=== PATIENT | female | born 1975 | race Two or more races ===

== ENCOUNTER 2020-07-22 10:53 | Emergency (ER) | payer OTHER ==
[2020-07-22 11:50] LABS: BASOPHILS # (AUTO) 0.1 10^3/uL (0.0-0.1); BASOPHILS % (AUTO) 0.8 %; EOSINOPHILS # (AUTO) 0.2 10^3/uL (0.0-0.7); EOSINOPHILS % (AUTO) 3.1 %; HCT - HEMATOCRIT 40.7 % (37.0-47.0); HGB - HEMOGLOBIN 12.8 g/dL (12.0-16.0); LYMPHOCYTES # (AUTO) 1.3 10^3/uL (1.5-3.5); LYMPHOCYTES % (AUTO) 20.2 %; MEAN CORPUSCULAR HEMOGLOBIN 21.7 pg (27.0-31.0); MEAN CORPUSCULAR HGB CONC 31.4 g/dL (32.0-36.0); MEAN PLATELET VOLUME 9.2 fL (7.9-10.8); MONOCYTES # (AUTO) 0.6 10^3/uL (0.0-1.0); MONOCYTES % (AUTO) 8.7 %; NEUTROPHILS # (AUTO) 4.4 10^3/uL (1.5-6.6); PLT - PLATELET COUNT 294 10^3/uL (130-450); RED CELL DISTRIBUTION WIDTH 13.7 % (12.0-15.0); WHITE BLOOD COUNT 6.5 x10^3/uL (4.8-10.8)
[2020-07-22 11:53] LABS: SLIDE REVIEW? Indicated
[2020-07-22 12:03] LABS: ALBUMIN 4.5 g/dL (3.2-5.5); ALBUMIN/GLOBULIN RATIO 1.6 (1.0-2.2); BILIRUBIN,TOTAL 0.9 mg/dL (0.2-1.0); CALCIUM 9.8 mg/dL (8.5-10.3); CREATININE 0.7 mg/dL (0.4-1.0); POTASSIUM 3.9 mmol/L (3.5-5.0); TOTAL PROTEIN 7.3 g/dL (6.7-8.2)
[2020-07-22 12:11] LABS: PLATELET ESTIMATE, MANUAL NORMAL (130-450,000) (NORMAL); PLATELET MORPHOLOGY NORMAL APPEARANCE (NORMAL)
[2020-07-22 12:12] LABS: RBC MORPHOLOGY (MULTIPLE) 3+ MICROCYTOSIS (NORMAL)
[2020-07-22 12:48] LABS: BILIRUBIN,URINE NEGATIVE (NEGATIVE); CLARITY,URINE CLEAR (CLEAR); GLUCOSE, URINE (UA) NEGATIVE (NEGATIVE); KETONES,URINE (UA) 15 mg/dL (NEGATIVE); LEUKOCYTE ESTERASE, URINE NEGATIVE (NEGATIVE); NITRITE,URINE NEGATIVE (NEGATIVE); OCCULT BLOOD,URINE TRACE-INTA (NEGATIVE); PROTEIN,URINE NEGATIVE (NEGATIVE); UROBILINOGEN,URINE 0.2 (NORMAL) E.U./dL (NORMAL)
--- NOTE | 2020-07-22 14:03 | ED Physician Documentation ---
History of Present Illness - Stated complaint Stated Complaint: WEAKNESS - Chief complaint Chief Complaint: General - History obtained from History obtained from: Patient - Additonal information Additional information: 45yF with pmh anxiety on venlafaxine p/w full body tingling, sensation of weakness, and concerns that she has rhabdomyolysis (which she has had in the past). Patient states she is very anxious and stopped her venlafaxine abruptly last week without consulting a doctor. Since that time she has been feeling tearful and anxious. denies SI/HI/AVH. Her primary doctor prescribed her prop ranolol as an alternative and has her set up with outpatient mental health intake this upcoming week. Review of Systems Ten Systems: 10 systems reviewed and negative Constitutional: reports: Myalgias, Fatigue. denies: Fever, Chills Cardiac: denies: Chest pain / pressure Respiratory: denies: Dyspnea GI: denies: Abdominal Pain Neurologic: reports: Generalized weakness. denies: Syncope, Headache Psychiatric: reports: Depressed, Anxiety. 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 - Present Medications Home Medications: Ambulatory Orders Medication Instructions Recorded Confirmed Control 1 applic SUBQ TITR 09/14/14 07/22/20 Propranolol [Inderal] 1 tab ORAL DAILY PRN 10/22/15 07/22/20 Venlafaxine [Effexor] 1 tab ORAL DAILY 10/22/15 07/22/20 - Allergies Allergies/Adverse Reactions: Allergies Allergy/AdvReac Type Severity Reaction Status Date / Time No Known Drug Allergies Allergy Verified 07/22/20 11:04 - Social History Does the pt smoke?: No Smoking Status: Never smoker Does the pt drink ETOH?: No Does the pt have substance abuse?: No - Immunizations Immunizations are current?: Yes PD ED PE NORMAL - Vitals Vital signs reviewed: Yes - General General: Alert and oriented X 3, No acute distress, Well developed/nourished - HEENT HEENT: Atraumatic, PERRL, EOMI - Neck Neck: Supple, no meningeal sign - Cardiac Cardiac: RRR - Respiratory Respiratory: No respiratory distress, Clear bilaterally - Abdomen Abdomen: Non tender, Non distended - Derm Derm: Normal color - Extremities Extremities: No deformity - Neuro Neuro: Alert and oriented X 3 - Psych Psych: Other (intermittently tearful affect. mood described as anxious) Results - Vitals Vitals: Vital Signs - 24 hr 07/22/20 07/22/20 10:59 14:08 Temperature 36.4 C L 37.1 C Heart Rate 84 61 Respiratory 16 18 Rate Blood Pressure 116/81 H 121/81 H O2 Saturation 100 100 Oxygen O2 Source Room air - Labs Labs: Laboratory Tests 07/22/20 07/22/20 07/22/20 11:40 11:40 12:33 WBC 6.5 RBC 5.90 H Hgb 12.8 Hct 40.7 MCV 69.0 L MCH 21.7 L MCHC 31.4 L RDW 13.7 Plt Count 294 MPV 9.2 Neut # (Auto) 4.4 Lymph # (Auto) 1.3 L [place] # (Auto) 0.6 Eos # (Auto) 0.2 Baso # (Auto) 0.1 Absolute Nucleated RBC 0.00 Nucleated RBC % 0.0 Manual Slide Review Indicated Platelet Estimate NORMAL (130-450,000) Platelet Morphology NORMAL APPEARANCE RBC Morph Micro Appear 3+ MICROCYTOSIS Sodium 136 Potassium 3.9 Chloride 99 L Carbon Dioxide 28 Anion Gap 9.0 BUN 20 Creatinine 0.7 Estimated GFR (MDRD) 90 Glucose 97 Calcium 9.8 Total Bilirubin 0.9 AST 26 ALT 20 Alkaline Phosphatase 30 L Total Creatine Kinase 130 Total Protein 7.3 Albumin 4.5 Globulin 2.8 Albumin/Globulin Ratio 1.6 Lipase 47 Urine Color YELLOW Urine Clarity CLEAR Urine pH 7.0 Ur Specific [place] 1.010 Urine Protein NEGATIVE Urine Glucose (UA) NEGATIVE Urine Ketones 15 H Urine Occult Blood TRACE-INTA Urine Nitrite NEGATIVE Urine Bilirubin NEGATIVE Urine Urobilinogen 0.2 (NORMAL) Ur Leukocyte Esterase NEGATIVE Ur Microscopic Review NOT INDICATED Urine Culture Comments NOT INDICATED PD MEDICAL DECISION MAKING - ED course ED course: 45yF presented for medical screening exam without abnormalities on bloodwork including ck. she has good outpatient mental health follow up and support system at home. return precautions given. Departure - Departure Disposition: Home, Self Care Clinical Impression: Anxiety Condition: Good Instructions: ED Stress React Comments: You are seen in the emergency department for anxiety and stress reaction. Please follow-up with your primary doctor this week as well as with your mental health provider for evaluation. Return the emergency department if you have thoughts of suicide, of killing anyone else, Or if you are having hallucinations. You're not alone Help is available National Suicide Prevention Lifeline Discharge Date/Time: 07/22/20 14:12
[2020-07-22 14:08] VITALS: BP 121/81
== END 2020-07-22 14:12 | disposition home or self-care (01) ==
LOC: ED 10:53
DX: F41.9 Anxiety disorder, unspecified (principal); F43.9 Reaction to severe stress, unspecified; R20.2 Paresthesia of skin; R53.1 Weakness
CPT/HCPCS: 36415; 80053; 81001; 81003; 82550; 83690; 85025; 87086; 99283

== ENCOUNTER 2020-08-01 22:38 | Emergency (ER) | payer OTHER ==
[2020-08-01 23:40] LABS: MUDS CUTOFF CONCENTRATIONS CUTOFF CONC BELOW:
[2020-08-01 23:43] LABS: BILIRUBIN,URINE NEGATIVE (NEGATIVE); CLARITY,URINE CLEAR (CLEAR); GLUCOSE, URINE (UA) NEGATIVE (NEGATIVE); KETONES,URINE (UA) NEGATIVE (NEGATIVE); LEUKOCYTE ESTERASE, URINE NEGATIVE (NEGATIVE); NITRITE,URINE NEGATIVE (NEGATIVE); OCCULT BLOOD,URINE TRACE-INTA (NEGATIVE); PH,URINE 6.5 PH (5.0-7.5); PROTEIN,URINE NEGATIVE (NEGATIVE); UROBILINOGEN,URINE 0.2 (NORMAL) E.U./dL (NORMAL)
[2020-08-01 23:45] LABS: BASOPHILS # (AUTO) 0.1 10^3/uL (0.0-0.1); BASOPHILS % (AUTO) 0.7 %; EOSINOPHILS # (AUTO) 0.2 10^3/uL (0.0-0.7); EOSINOPHILS % (AUTO) 2.2 %; HCT - HEMATOCRIT 35.5 % (37.0-47.0); HGB - HEMOGLOBIN 10.9 g/dL (12.0-16.0); LYMPHOCYTES # (AUTO) 1.4 10^3/uL (1.5-3.5); LYMPHOCYTES % (AUTO) 19.4 %; MEAN CORPUSCULAR HEMOGLOBIN 21.5 pg (27.0-31.0); MEAN CORPUSCULAR HGB CONC 30.7 g/dL (32.0-36.0); MEAN CORPUSCULAR VOLUME 70.2 fL (81.0-99.0); MEAN PLATELET VOLUME 10.4 fL (7.9-10.8); MONOCYTES # (AUTO) 0.8 10^3/uL (0.0-1.0); MONOCYTES % (AUTO) 10.9 %; NEUTROPHILS # (AUTO) 4.6 10^3/uL (1.5-6.6); NEUTROPHILS % (AUTO) 66.5 %; PLT - PLATELET COUNT 309 10^3/uL (130-450); RED BLOOD COUNT 5.06 10^6/uL (4.20-5.40); RED CELL DISTRIBUTION WIDTH 13.8 % (12.0-15.0)
[2020-08-01 23:58] LABS: AMPHETAMINE SCREEN,URINE NEGATIVE (NEGATIVE); BARBITURATE SCREEN,UR NEGATIVE (NEGATIVE); BENZODIAZEPINES SCREEN, URINE NEGATIVE (NEGATIVE); COCAINE SCREEN URINE NEGATIVE (NEGATIVE); METHADONE SCREEN, URINE NEGATIVE (NEGATIVE); METHAMPHETAMINES SCREEN, URINE NEGATIVE (NEGATIVE); OPIATE SCREEN, URINE NEGATIVE (NEGATIVE); OXYCODONE SCREEN, URINE NEGATIVE (NEGATIVE); PROPOXYPHENE SCREEN, URINE NEGATIVE (NEGATIVE); THC CANNABINOID SCREEN, URINE NEGATIVE (NEGATIVE); TRICYCLIC ANTIDEPRESSANT,URINE NEGATIVE (NEGATIVE)
[2020-08-01 23:59] LABS: ACETAMINOPHEN < 10 ug/mL (10-30); ALBUMIN 4.6 g/dL (3.2-5.5); ALBUMIN/GLOBULIN RATIO 1.8 (1.0-2.2); ALKALINE PHOSPHATASE 27 IU/L (42-121); ALT ALANINE AMINOTRANSFERASE 19 IU/L (10-60); AST ASPARTATE AMINOTRANSFERASE 28 IU/L (10-42); BILIRUBIN,TOTAL 0.5 mg/dL (0.2-1.0); BUN - BLOOD UREA NITROGEN 20 mg/dL (6-20); CALCIUM 9.8 mg/dL (8.5-10.3); CARBON DIOXIDE - CO2 26 mmol/L (21-32); CHLORIDE 98 mmol/L (101-111); CREATININE 1.2 mg/dL (0.4-1.0); ETOH - ETHANOL < 5.0 mg/dL; GFR - MDRD 48 (>89); GLUCOSE 108 mg/dL (70-100); LIPASE 41 U/L (22-51); SALICYLATE < 6.0 mg/dL; SODIUM 136 mmol/L (135-145); TOTAL PROTEIN 7.2 g/dL (6.7-8.2)
--- NOTE | 2020-08-02 03:55 | ED Physician Documentation ---
PD HPI MHE - Stated complaint Stated Complaint: FEELING MANIC - Chief complaint Chief Complaint: MHE - History obtained from History obtained from: Patient - History of Present Illness Primary symptom: Manic (feeling trouble sleeping, anxious, increased racing thoughts (but is feeling good about "such great clarity of thought").), Anxiety, Other ( describes the patient locking herself in bathroom for 12 hours earlier today, texting contnually on phone. Would not come out. No real sleep for days/week or more.) Timing - onset: How many weeks ago (3-4) Contributing factors: Off meds (had stopped her Venlafexine that she had been on for 10 years as she felt she did not need it, feeling improved mood. She and had started Keto diet the week prior and she felt good.). No: Substance abuse - ETOH, Substance abuse - drugs Similar symptoms before: Has not had sx before (no history of wayne nor major depression, but long history of anxiety.) Recently seen: Clinic (video with PCP who Rx Propranolol for anxiety, a med patient had been on in the past. Told to continue to stay off the Effexor, since stopped 3-4 weeks prior already.), Emergency Dept (10 days ago for same, without Rx.) Review of Systems Constitutional: denies: Fever, Chills Nose: denies: Rhinorrhea / runny nose, Congestion Throat: denies: Sore throat Cardiac: denies: Chest pain / pressure, Pedal edema Respiratory: denies: Cough GI: denies: Abdominal Pain, Nausea, Vomiting, Diarrhea : denies: Dysuria, Frequency Skin: denies: Rash, Lesions Neurologic: denies: Headache Psychiatric: reports: Anxiety, Insomnia, Other (feeling of increased energy and "clarity of thought".) PD PAST MEDICAL HISTORY - Past Medical History Past Medical History: Yes Psych: Anxiety, Other (no Dx of bipolar) - Past Surgical History 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 - Present Medications Home Medications: Ambulatory Orders Medication Instructions Recorded Confirmed Control 1 applic SUBQ TITR 09/14/14 07/22/20 Propranolol [Inderal] 1 tab ORAL DAILY PRN 10/22/15 07/22/20 Venlafaxine [Effexor] 1 tab ORAL DAILY 10/22/15 07/22/20 - Allergies Allergies/Adverse Reactions: Allergies Allergy/AdvReac Type Severity Reaction Status Date / Time No Known Drug Allergies Allergy Verified 07/22/20 11:04 - Social History Does the pt smoke?: No Smoking Status: Never smoker Does the pt drink ETOH?: No Does the pt have substance abuse?: No - Family History Family history: reports: Other (father and sister with bipolar disorder. ) - Immunizations Immunizations are current?: Yes PD ED PE NORMAL - Vitals Vital signs reviewed: Yes - General General: Alert and oriented X 3, Well developed/nourished - Neck Neck: Supple, no meningeal sign, No adenopathy - Cardiac Cardiac: RRR, No murmur - Respiratory Respiratory: Clear bilaterally - Abdomen Abdomen: Soft, Non tender - Derm Derm: Normal color, Warm and dry - Neuro Neuro: Alert and oriented X 3, No motor deficit, Normal speech - Psych Psych: Other (once started talking, was very talkative without pause, but not really pressured per se. Somewhat circumferential. Would often clarify/correct with finer detail things her said. ) Results - Vitals Vitals: Vital Signs - 24 hr 08/01/20 22:44 Temperature 36.1 C L Heart Rate 89 Respiratory 20 Rate Blood Pressure 147/66 H O2 Saturation 100 Oxygen O2 Source Room air - Labs Labs: Laboratory Tests 08/01/20 08/01/20 08/01/20 23:35 23:41 23:41 WBC 7.0 RBC 5.06 Hgb 10.9 L Hct 35.5 L MCV 70.2 L MCH 21.5 L MCHC 30.7 L RDW 13.8 Plt Count 309 MPV 10.4 Neut # (Auto) 4.6 Lymph # (Auto) 1.4 L [place] # (Auto) 0.8 Eos # (Auto) 0.2 Baso # (Auto) 0.1 Absolute Nucleated RBC 0.00 Nucleated RBC % 0.0 Sodium 136 Potassium 4.0 Chloride 98 L Carbon Dioxide 26 Anion Gap 12.0 BUN 20 Creatinine 1.2 H Estimated GFR (MDRD) 48 L Glucose 108 H Calcium 9.8 Total Bilirubin 0.5 AST 28 ALT 19 Alkaline Phosphatase 27 L Total Protein 7.2 Albumin 4.6 Globulin 2.6 Albumin/Globulin Ratio 1.8 Lipase 41 TSH Urine Color YELLOW Urine Clarity CLEAR Urine pH 6.5 Ur Specific [place] <=1.005 Urine Protein NEGATIVE Urine Glucose (UA) NEGATIVE Urine Ketones NEGATIVE Urine Occult Blood TRACE-INTA Urine Nitrite NEGATIVE Urine Bilirubin NEGATIVE Urine Urobilinogen 0.2 (NORMAL) Ur Leukocyte Esterase NEGATIVE Ur Microscopic Review NOT INDICATED Urine Culture Comments NOT INDICATED Salicylates < 6.0 Urine Opiates Screen NEGATIVE Ur Oxycodone Screen NEGATIVE Urine Methadone Screen NEGATIVE Ur Propoxyphene Screen NEGATIVE Acetaminophen < 10 L Ur Barbiturates Screen NEGATIVE Ur Tricyclics Screen NEGATIVE Ur Phencyclidine Scrn NEGATIVE Ur Amphetamine Screen NEGATIVE U Methamphetamines Scrn NEGATIVE U Benzodiazepines Scrn NEGATIVE Urine Cocaine Screen NEGATIVE U Cannabinoids Screen NEGATIVE Ethyl Alcohol < 5.0 08/01/20 23:41 WBC RBC Hgb Hct MCV MCH MCHC RDW Plt Count MPV Neut # (Auto) Lymph # (Auto) [place] # (Auto) Eos # (Auto) Baso # (Auto) Absolute Nucleated RBC Nucleated RBC % Sodium Potassium Chloride Carbon Dioxide Anion Gap BUN Creatinine Estimated GFR (MDRD) Glucose Calcium Total Bilirubin AST ALT Alkaline Phosphatase Total Protein Albumin Globulin Albumin/Globulin Ratio Lipase TSH 4.19 Urine Color Urine Clarity Urine pH Ur Specific [place] Urine Protein Urine Glucose (UA) Urine Ketones Urine Occult Blood Urine Nitrite Urine Bilirubin Urine Urobilinogen Ur Leukocyte Esterase Ur Microscopic Review Urine Culture Comments Salicylates Urine Opiates Screen Ur Oxycodone Screen Urine Methadone Screen Ur Propoxyphene Screen Acetaminophen Ur Barbiturates Screen Ur Tricyclics Screen Ur Phencyclidine Scrn Ur Amphetamine Screen U Methamphetamines Scrn U Benzodiazepines Scrn Urine Cocaine Screen U Cannabinoids Screen Ethyl Alcohol PD MEDICAL DECISION MAKING - ED course Complexity details: reviewed results, considered differential (having new onset manic and insomnia the past 3-4 weeks. No major depression in the past. Had stopped Venlafexine 3 weeks ago but was already starting to feeling onset symptoms prior to that. ), d/w patient, d/w storage management consultant (TelePsych suggests Zyprexa 5 mg PO (qHS regularly) to help with thought process/anxiety. Does suggest inpatient treatment and is voluntary at this point. ) ED course: Will have help find voluntary placement for patient, who is agreeable. Departure - Departure Clinical Impression: Manic behavior, Anxiety Condition: Stable Record reviewed to determine appropriate education?: Yes
[2020-08-02] MEDS ORDERED: OLANZapine ODT 5 MG TABLET TL ONE (06:22)
--- NOTE | 2020-08-02 06:52 | TELEPSYCH PHYS NOTE ---
Telepsych Note - CHIEF COMPLAINT/HX OF PRESENT ILLNESS Chief Complaint and History of Present Illness: Name: Stacey Larios :73 Date: 08/02/20 Time:926 EST Location of patient: [place] Location of doctor: [place] Length of consult: 75min This evaluation was conducted via telepsychiatry with the assistance of onsite staff Reason for consult: manic Requested by: Dr. Metcalf History of Present Illness: 45 year old female with a history of anxiety who presented tot [facility] with increasing manic symptoms after starting a keto diet. The patient was agreeable to the interview. Her was present. She reports that over the last month she started the [employer] red revolution diet. She cut out all sugar and pasta and rice. She reports that she was mainly eating meats and vegetables. She reports she was used to having to take naps every day. She reported she started having increased energy and motivations then after 1 week decided to stop her anxiety medication she had been on for 15- 20 years. She reports that she stopped venlafaxine and had mood swings, irritability, panic attacks, chills and numbness in her hands and feet. This has resolved and she is feeling clearer. She reports that she has lots of ideas and she has began journaling and vlogging. She reports she has ideas for all kinds of inventions. She reports that she has ideas at work that people are not taking seriously. She reports sleeping 23 hours a night. She reports she has lots of energy and motivation. She reports 2 days ago she [place] the [place] following day her states she locked herself in the bathroom for 12 hours. That is when he brought her in. he reports she has been irritable and she has had an epiphany about the bible. He reports she has been one minute wanting him to hugs her and the next she hates him. she denies suicidal or homicidal ideations intent or plans. she denies auditory or visual hallucinations Collateral contacted (Y/N) yes____. Name Phone #? , Relationship to the patient__husband . If N, (No Answer/None available/Patient meets criteria for admission/Other free text reason) was present for the interview Sleep issues: yes - Quantity: 3 hours Quality: good Suicide Assessment: PSS-3: 1) Over the past 2 weeks have you felt down, depressed or hopeless? (Y/N) no 2) Over the past 2 weeks have you had thoughts of killing yourself? (Y/N) no 3) Have you ever in your life attempted to kill yourself? (Y/N) no If yes, then when? Within the past 24h? (Y/N), past month? (Y/N), between 1- 6 months (Y/N), > 6 months (Y/N) PSS-3 Secondary Screen If #2 is yes or #3 is yes within the past 6 months, then complete secondary screen: 1) Positive on PSS-3 questions 2 & 3 active SI with a past attempt? (Y/N) 2) Have you been thinking about how you might kill yourself? (Y/N) 3) Have you had some intention of acting on your thoughts? (Y/N) 4) Lifetime psychiatric hospitalization? (Y/N) 5) Has drinking or substance abuse ever been a problem for you? (Y/N) 6) Current irritability, agitation, or aggression? (Y/N) PSS-3 Secondary Screen Scoring: (Mild/Moderate/Severe) Mild (0-2) No current attempt and no plan/intent Moderate (3-4) No current attempt, Plan OR intent but not both Severe (5-6) Current Attempt with Plan AND intent [facility] Safety Assessment: Risk Factors family history of bipolar and cannabis abuse Stressors: decreased sleep Attempts/Self-injury: Y/N if Y then describe: none Impulsivity: Y/N if Y then describe : yes Drug/Alcohol History: Y/N - if Y then describe: no smoking, no drinking, reports used to smoke marijuana nightly and has cut down over the last 1 week Trauma history: Y/N - if Y then describe: denies Access to firearms: Y/N - if Y then describe: has a gun HI/Violence/Property destruction: Y/N - if Y then describe: denies Legal: Y/N - if Y then describe: denies Family Psych History: Y/N - if Y then describe: father bipolar. 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 No suicide attempts Hospitalizations: (Y/N) if Y describe: no Current Treatment: Medication management (Y/N) Therapy (Y/N) yes with a psychologist - DRUG/ALCOHOL HX Substance Use and Type: Marijuana Number: 0 - MEDICAL HX Does the pt have a hx of MRSA?: No Neurological History: None Eyes, Ears, Nose, Throat: None Cardiovascular: None Respiratory: None Skin: None Endocrine/Autoimmune: None Gastrointestinal: None Is Patient ?: No Urinary: None Musculoskeletal: None - SURGICAL HX Gynecologic: section - HOME MEDICATIONS Home Meds (as last confirmed): Patient History Medication Instructions Recorded Confirmed Control 1 applic SUBQ TITR 09/14/14 07/22/20 Propranolol [Inderal] 1 tab ORAL DAILY PRN 10/22/15 07/22/20 Venlafaxine [Effexor] 1 tab ORAL DAILY 10/22/15 07/22/20 - ALLERGIES Allergies (as last confirmed): Allergies Allergy/AdvReac Type Severity Reaction Status Date / Time No Known Drug Allergies Allergy Verified 07/22/20 11:04 - FAMILY PSYCH/SUICIDE/SOCIAL HX-MENTAL Family - Suicide - Social Hx and Mental Status Exam: Family Psych History: Y/N - if Y then describe: father bipolar. She had a sister diagnosed bipolar in the 7th grade Family History of suicide: (Y/N) sister of suicide at 19 - PATIENT PROBLEM LIST (1) Bipo I sin man-sev w psy Impression: Current Suicide Risk (Elevated? Y/N):no Current Violence Risk (Elevated? Y/N):no Ability to care for self: Y/N : yes Summary: 45 year old female with a history anxiety who presented to the ED with manic symptoms after starting a keto diet leading to decreased sleep. With her family history yof bipolar , her lack of sleep and new impulsivity and mood lability the patient appears to be having a manic episode. She meets criteria for a voluntary psychiatric admission at this time - TREATMENT/PHARMACOLOGICAL RECOMMENDATION Treatment - Pharmacological - Therapy Recommendations: Level of Care: inpatient - voluntary Psychiatric Clearance: no Observation level close Pharmacological: Zyprexa 5 mg po q hs and titrate up as needed for 6-8 hours of sleep Patient psychotic? Y/N if Y was standing antipsychotic medication started Y/N yes Therapy: supportive Follow up needed while in hospital?: Y/N/NA if Y then frequency, daily Discussed plan with onsite steam plant control room operator, who? (Y/N): Who Dr. Metcalf Other: - TIME SPENT & PROVIDER LOCATION Telepsych consultation conducted via videoconferencing: Yes (75min) List names and roles of persons who participated in consult: Dr. metcalf. Dr. 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 Patient is and lives in [place].
--- NOTE | 2020-08-02 12:46 | ED Physician Documentation ---
ED Addendum - Addendum Addendum: Patient was seen by my colleague earlier this morning for acute psychosis and manic behavior. She did have a telepsych evaluation which suggested patient would benefit from Zyprexa which was administered. Recommended voluntary psychiatric placement which patient has been agreeable to. Patient has been seen by social work and has been accepted to [facility]. Patient's will drive her directly to the hospital as she is voluntary. 08/02/20 12:47
[2020-08-02 13:57] VITALS: BP 148/76
== END 2020-08-02 13:59 ==
LOC: ED 22:38
DX: F30.2 Manic episode, severe with psychotic symptoms (principal); F41.9 Anxiety disorder, unspecified; G47.00 Insomnia, unspecified; Z81.8 Family history of other mental and behavioral disorders
CPT/HCPCS: 36415; 80053; 80306; 80307; 80320; 80329; 81003; 83690; 84443; 85025; 99283; A9270; G0427; Q3014; 81001; 87086